=== PATIENT | male | born 1960 | race American Indian/Alaskan Native ===

== ENCOUNTER → 2017-06-11 | Day surgery (SDC) | payer OTHER ==
[~2017-06-11] MED LIST: Iodixanol 320 MG/ML 100 ML BOTTLE IV ONE; Iodixanol 320 MG/ML 200 ML BOTTLE IV ONE; Midazolam 2 MG/2 ML VIAL ONE; Morphine 4 MG/ML VIAL IV ONE; Oxycodone/Acetaminophen 5/325 mg Tab ONE; Oxycodone/Acetaminophen 5/325 mg Tab PO PRN
[2017-06-11 12:41] LABS: INR 1.1; PROTHROMBIN TIME 12.1 SECONDS (9.7-12.2)
--- NOTE | 2017-06-12 01:00 | CARDCATH ---
PROCEDURE DATE: INDICATIONS: The patient is a 56-year-old -[place] male, who has a history of cocaine abuse. He presented to [facility] because of chest pain and abdominal pain. EKG revealed anterior ST segment elevation. NC was ruled out. Cardiac catheterization was recommended in view of the new development of anterior ST elevation on the EKG at the day of discharge, which did not exist at initial EKG. The procedure and its risks were explained to the patient, who understood and agreed for the procedure. DESCRIPTION OF PROCEDURE: After local infiltration with 1% lidocaine, a 6-Jamaican sheath was placed in the right femoral artery. Left and right coronary angiography were performed with 6-Jamaican JL4.5 and Harris diagnostic catheter. Left ventriculogram and aortogram were performed with a 6-Jamaican pigtail catheter. The patient tolerated the procedure well without any complications. ANGIOGRAPHIC FINDINGS: Selective injection of left coronary artery revealed the left main to be a normal vessel. Main trifurcated into medium-sized LAD and medium-sized codominant circumflex artery. The LAD had 20% ostial narrowing and the rest of the LAD was angiographically unremarkable. The first obtuse marginal branch had 80% ostial narrowing, but this branch was less than 2 mm in diameter and was not amenable for intervention. The rest of the circumflex artery circulation was angiographically unremarkable. Selective injection of right coronary artery revealed a medium-sized codominant vessel that was angiographically unremarkable. Left ventriculogram performed in the CARR projection revealed mild diffuse left ventricular hypokinesis. Overall ejection fraction estimated at 45%. Aortography was performed in the SWEDISH projection. It revealed mildly dilated aortic root and arch. There was no aortic insufficiency or dissection. CONCLUSION: 1. An 80% stenosis of the proximal segment of the first obtuse marginal branch in a small caliber vessel that is not amenable for intervention. 2. Mildly increased ejection fraction. 3. Mild dilated aortic root. RECOMMENDATION: Continue aspirin and nitrate therapy. The patient was strongly advised to abstain from future cocaine abuse. Naun Galvan MD
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
--- NOTE | 2017-06-12 11:03 | VASCLAB ---
PROCEDURE: Arterial Duplex Scan of Right Groin HISTORY: S/P Catheterization, bleed right groin. COMPARISON: None available. TECHNIQUE: EMMA Robles, RVT FINDINGS: The velocities of the right groin are common femoral 61 cm/s, proximal superficial femoral 94 cm/s and proximal profunda femoral 32 cm/s. IMPRESSION: No evidence of deep vein thrombosis, pseudoaneurysm or hematoma noted in the right groin.
== END | disposition home or self-care (01) ==
LOC: C.CATHLAB 10:17
PROVIDERS: ATTEND Specialist
DX: I25.10 Atherosclerotic heart disease of native coronary artery without angina pectoris (principal); F14.10 Cocaine abuse, uncomplicated; R94.31 Abnormal electrocardiogram [ECG] [EKG]
CPT/HCPCS: 36415; 85610; 85730; 93458; 93926; J1644; J2250; J2270; Q9966; Q9967